=== PATIENT | female | born 1980 | race Caucasian/White ===

== ENCOUNTER 2018-02-14 15:48 | Inpatient (IN) | payer MEDICAID ==
[2018-02-14] MEDS ORDERED: Sodium Chloride 0.9% 1,000 ML IV ONE ×2 (16:02→19:31)
[2018-02-14 16:26] LABS: % BASOPHILS 0.8 % (0.0-2.0); % EOSINOPHILS 0.2 % (0.0-5.0); % MONOCYTES 7.4 % (2.0-10.0); % NEUTROPHILS 73.6 % (40.0-80.0); BASOPHILE ABSOLUTE 0.1 Th/cumm (0-0.2); HEMATOCRIT 38.6 % (41.0-60); HEMOGLOBIN 12.9 gm/dL (12-16); LYMPHOCYTE ABSOLUTE 2.4 Th/cmm (1.5-3.0); MEAN CELL VOLUME 75.3 fl (81-100); MEAN CORPUSCULAR HGB CONC 33.3 pg (28.0-36.0); MEAN PLATELET VOLUME 6.8 fl; PLATELET COUNT 452 Th/cmm (150-400); RED BLOOD COUNT 5.13 Mil/cmm (3.80-5.10); RED CELL DISTRIBUTION WIDTH 15.2 % (11.5-20.0); WHITE BLOOD COUNT 13.5 Th/cmm (4.8-10.8)
[2018-02-14 16:41] LABS: INR 1.06 (0.5-1.4)
[2018-02-14 16:45] LABS: ALB/GLOB RATIO 1.4 (1.0-1.8); ALBUMIN 4.6 gm/dL (3.7-5.3); ALKALINE PHOSPHATASE 102 U/L (34-104); ANION GAP 18.4 (7.0-16.0); BILIRUBIN,TOTAL 0.7 mg/dL (0.3-1.0); BUN - UREA NITROGEN 21 mg/dL (7-25); CALCIUM SERUM 9.5 mg/dL (8.6-10.3); CARBON DIOXIDE 19.2 mEq/L (21.0-31.0); CHLORIDE 107 mEq/L (98-107); CHOLESTEROL 204 mg/dL (<200); CREATININE - SERUM 0.7 mg/dL (0.6-1.2); CREATININE KINASE 3581 U/L (30-223); GFR AFRICAN-AMERICAN > 60.0 ml/min (>90); GFR NON AFRICAN-AMERICAN > 60.0 ml/min; GLUCOSE 184 mg/dL (70-105); HDL -HIGH DENSITY LIPOPROTEIN 30 mg/dL (23-92); POTASSIUM SERUM 3.6 mEq/L (3.5-5.1); SGOT 114 U/L (13-39); SGPT/ALT 61 U/L (7-52); SODIUM SERUM 141 mEq/L (136-145); TRIGLYCERIDES 139 mg/dL (<150)
[2018-02-14 16:46] LABS: AMYLASE SERUM 23 U/L (29-103); LIPASE 7 U/L (11-82)
--- NOTE | 2018-02-14 17:25 | ED Physician Chart ---
ED Chief Complaint/HPI - Patient Information Date Seen:: 02/14/18 Time Seen:: 16:15 Chief Complaint:: Weakness History of Present Illness:: onset x one day of generalized weakness, dizziness, and vertigo; no report of trauma, LOC, ALOC, AMS, H/As, S/T, neck pain, cough, C/P, SOB, Abd. Pain, A/N/V/ D/C, fever, chills, or urinary s/s Allergies:: Allergies Allergy/AdvReac Type Severity Reaction Status Date / Time No Known Allergies Allergy Verified 02/14/18 16:11 Vitals:: Vital Signs - 8 hr 02/14/18 02/14/18 02/14/18 16:11 16:29 16:36 Temp 99.7 F 99.4 F 99.4 F HR 119 111 111 RR 18 24 107 BP 128/74 121/70 127/62 O2 Sat % 96 100 99 Historian:: Patient, EMS Review:: Nurse's Note Reviewed, Old Chart Reviewed, EMS run form Reviewed <Arsen Hogan - Last Filed: 02/14/18 18:29> - Patient Information Allergies:: Allergies Allergy/AdvReac Type Severity Reaction Status Date / Time No Known Allergies Allergy Verified 02/14/18 16:11 Vitals:: Vital Signs - 8 hr 02/14/18 02/14/18 02/14/18 16:11 16:29 16:36 Temp 99.7 F 99.4 F 99.4 F HR 119 111 111 RR 18 24 107 BP 128/74 121/70 127/62 O2 Sat % 96 100 99 02/14/18 02/14/18 18:02 19:29 Temp 98.2 F 99.8 F HR 114 123 RR 20 25 BP 109/52 129/79 O2 Sat % 99 98 <Richard Navarro - Last Filed: 02/14/18 19:42> ED Review of Systems - Review of Systems General/Constitutional: No fever, No chills, No weight loss, Weakness, No diaphoresis, No edema, No loss of appetite Skin: No skin lesions, No rash, No bruising Head: No headache, No light-headedness Eyes: No loss of vision, No pain, No diplopia ENT: No earache, No nasal drainage, No sore throat, No tinnitus Neck: No neck pain, No swelling, No thyromegaly, No stiffness, No mass noted Cardio Vascular: No chest pain, No palpitations, No PND, No orthopnea, No edema Pulmonary: No SOB, No cough, No sputum, No wheezing GI: No nausea, No vomiting, No diarrhea, No pain, No melena, No hematochezia, No constipation, No hematemesis G/U: No dysuria, No frequency, No hematuria, No nacturia Car Trimmer: No vaginal discharge, No abnormal vaginal bleed, No contraction Musculoskeletal: No bone or joint pain, No back pain, No muscle pain Endocrine: No polyuria, No polydipsia Psychiatric: Prior psych history, No depression, Anxiety, No suicidal ideation, No homicidal ideation, No auditory hallucination, No visual hallucination Hematopoietic: No bruising, No lymphadenopathy Allergic/Immuno: No urticaria, No angioedema Neurological: No syncope, No focal symptoms, Weakness, No paresthesia, No headache, No seizure, Dizziness, No confusion, Vertigo <Arsen Hogan - Last Filed: 02/14/18 18:29> ED Past Medical History - Past Medical History Obtainable: Yes Past Medical History: No significant medical hx Family History: None Social History: Non Smoker, No Alcohol, No Drug Use, Single Surgical History: None Psychiatricy History: Other (Anxiety) Medication: Reviewed <Arsen Hogan - Last Filed: 02/14/18 18:29> Family Medical History - Family Member Mother History Unknown: Yes <Arsen Hogan - Last Filed: 02/14/18 18:29> ED Physical Exam - Physical Examination General/Constitutional: Awake, Well-developed, well-nourished, Alert, No distress, GCS 15, Non-toxic appearing, Ambulatory Head: Atraumatic Eyes: Lids, conjuctiva normal, PERRL, EOMI Skin: Nl inspection, No rash, No skin lesions, No ecchymosis, Well hydrated, No lymphadenopathy ENMT: External ears, nose nl, TM canals nl, Nasal exam nl, Lips, teeth, gums nl , Oropharynx nl, Tonsils nl Neck: Nontender, Full ROM w/o pain, No JVD, No nuchal rigidity, No bruit, No mass, No stridor Other Neck comments:: supple; no meningeal signs; no cervical tenderness; no bruits Respiratory: Nl effort/Exclusion, Clear to Auscultation, No Wheeze/Rhonchi/Rales Cardio Vascular: RRR, No murmur, gallop, rubs, NL S1 S2, Carotid/Femoral/Distal pulses equal bilaterally GI: No tenderness/rebounding/guarding, No organomegaly, No hernia, Normal BS's, Nondistended, No mass/bruits, No McBurney tenderness Other GI comments:: no pulsatile masses : No CVA tenderness Extremities: No tenderness or effusion, Full ROM, normal strength in all extremities, No edema, Normal digits & nails Neuro/Psych: Alert/oriented, DTR's symmetric, Normal sensory exam, Normal motor strength, Judgement/insight normal, Mood normal, Normal gait, No focal deficits Other Neuro/Psych comments:: no focal signs Misc: Normal back, No paraspinal tenderness <Arsen Hogan - Last Filed: 02/14/18 18:29> ED Labs/Radiology/EKG Results - Lab Results Results: Laboratory Tests 02/14/18 02/14/18 02/14/18 16:19 16:19 16:19 WBC 13.5 H RBC 5.13 H Hgb 12.9 Hct 38.6 L MCV 75.3 L MCH 25.0 L MCHC Differential 33.3 RDW 15.2 Plt Count 452 H MPV 6.8 Neutrophils % 73.6 Lymphocytes % 18.0 L Monocytes % 7.4 Eosinophils % 0.2 Basophils % 0.8 PT 11.0 INR 1.06 Sodium 141 Potassium 3.6 Chloride 107 Carbon Dioxide 19.2 L Anion Gap 18.4 H BUN 21 Creatinine 0.7 Est GFR ( Amer) > 60.0 Est GFR (Non-Af Amer) > 60.0 BUN/Creatinine Ratio 30.0 Glucose 184 H Calcium 9.5 Total Bilirubin 0.7 AST 114 H ALT 61 H Alkaline Phosphatase 102 Creatine Kinase 3581 H CK-MB (CK-2) 32.4 H Troponin I B-Natriuretic Peptide Total Protein 8.0 Albumin 4.6 Globulin 3.4 Albumin/Globulin Ratio 1.4 Triglycerides 139 Cholesterol 204 H LDL Cholesterol Direct 152 HDL Cholesterol 30 Amylase Lipase 02/14/18 02/14/18 02/14/18 16:19 16:19 16:19 WBC RBC Hgb Hct MCV MCH MCHC Differential RDW Plt Count MPV Neutrophils % Lymphocytes % Monocytes % Eosinophils % Basophils % PT INR Sodium Potassium Chloride Carbon Dioxide Anion Gap BUN Creatinine Est GFR ( Amer) Est GFR (Non-Af Amer) BUN/Creatinine Ratio Glucose Calcium Total Bilirubin AST ALT Alkaline Phosphatase Creatine Kinase CK-MB (CK-2) Troponin I 0.01 B-Natriuretic Peptide 7.6 Total Protein Albumin Globulin Albumin/Globulin Ratio Triglycerides Cholesterol LDL Cholesterol Direct HDL Cholesterol Amylase 23 L Lipase 7 L Comments:: Reviewed - EKG Interpretations EKG Time:: 16:11 Rate & Rhythm: 114; ST Comments:: non-specific st-t changes <Arsen Hogan - Last Filed: 02/14/18 18:29> - Lab Results Results: Laboratory Tests 02/14/18 02/14/18 02/14/18 16:19 16:19 16:19 WBC 13.5 H RBC 5.13 H Hgb 12.9 Hct 38.6 L MCV 75.3 L MCH 25.0 L MCHC Differential 33.3 RDW 15.2 Plt Count 452 H MPV 6.8 Neutrophils % 73.6 Lymphocytes % 18.0 L Monocytes % 7.4 Eosinophils % 0.2 Basophils % 0.8 PT 11.0 INR 1.06 Sodium 141 Potassium 3.6 Chloride 107 Carbon Dioxide 19.2 L Anion Gap 18.4 H BUN 21 Creatinine 0.7 Est GFR ( Amer) > 60.0 Est GFR (Non-Af Amer) > 60.0 BUN/Creatinine Ratio 30.0 Glucose 184 H Calcium 9.5 Total Bilirubin 0.7 AST 114 H ALT 61 H Alkaline Phosphatase 102 Creatine Kinase 3581 H CK-MB (CK-2) 32.4 H Troponin I B-Natriuretic Peptide Total Protein 8.0 Albumin 4.6 Globulin 3.4 Albumin/Globulin Ratio 1.4 Triglycerides 139 Cholesterol 204 H LDL Cholesterol Direct 152 HDL Cholesterol 30 Amylase Lipase Serum , Qual Urine Source Urine Color Urine Clarity Urine pH Ur Specific [place] Urine Protein Urine Glucose (UA) Urine Ketones Urine Blood Urine Nitrate Urine Bilirubin Urine Ictotest Urine Urobilinogen Ur Leukocyte Esterase Urine RBC Urine WBC Ur Epithelial Cells Urine Bacteria Urine Test Urine Opiates Screen Urine Methadone Screen Ur Barbiturates Screen Ur Tricyclics Screen Ur Phencyclidine Scrn Amphetamines Screen U Methamphetamines Scrn U Benzodiazepines Scrn U Cocaine Metab Screen U Cannabinoids Screen 02/14/18 02/14/18 02/14/18 16:19 16:19 16:19 WBC RBC Hgb Hct MCV MCH MCHC Differential RDW Plt Count MPV Neutrophils % Lymphocytes % Monocytes % Eosinophils % Basophils % PT INR Sodium Potassium Chloride Carbon Dioxide Anion Gap BUN Creatinine Est GFR ( Amer) Est GFR (Non-Af Amer) BUN/Creatinine Ratio Glucose Calcium Total Bilirubin AST ALT Alkaline Phosphatase Creatine Kinase CK-MB (CK-2) Troponin I 0.01 B-Natriuretic Peptide 7.6 Total Protein Albumin Globulin Albumin/Globulin Ratio Triglycerides Cholesterol LDL Cholesterol Direct HDL Cholesterol Amylase 23 L Lipase 7 L Serum , Qual Urine Source Urine Color Urine Clarity Urine pH Ur Specific [place] Urine Protein Urine Glucose (UA) Urine Ketones Urine Blood Urine Nitrate Urine Bilirubin Urine Ictotest Urine Urobilinogen Ur Leukocyte Esterase Urine RBC Urine WBC Ur Epithelial Cells Urine Bacteria Urine Test Urine Opiates Screen Urine Methadone Screen Ur Barbiturates Screen Ur Tricyclics Screen Ur Phencyclidine Scrn Amphetamines Screen U Methamphetamines Scrn U Benzodiazepines Scrn U Cocaine Metab Screen U Cannabinoids Screen 02/14/1818 18 16:19 17:00 17:00 WBC RBC Hgb Hct MCV MCH MCHC Differential RDW Plt Count MPV Neutrophils % Lymphocytes % Monocytes % Eosinophils % Basophils % PT INR Sodium Potassium Chloride Carbon Dioxide Anion Gap BUN Creatinine Est GFR ( Amer) Est GFR (Non-Af Amer) BUN/Creatinine Ratio Glucose Calcium Total Bilirubin AST ALT Alkaline Phosphatase Creatine Kinase CK-MB (CK-2) Troponin I B-Natriuretic Peptide Total Protein Albumin Globulin Albumin/Globulin Ratio Triglycerides Cholesterol LDL Cholesterol Direct HDL Cholesterol Amylase Lipase Serum , Qual NEGATIVE Urine Source CLEAN C Urine Color YELLOW Urine Clarity HAZY Urine pH 6.0 Ur Specific [place] >= 1.030 Urine Protein 100 H Urine Glucose (UA) NEGATIVE Urine Ketones >=80 H Urine Blood SMALL H Urine Nitrate NEGATIVE Urine Bilirubin MODERATE H Urine Ictotest Not Reportable Urine Urobilinogen 2.0 Ur Leukocyte Esterase SMALL H Urine RBC 2-5 Urine WBC 6-10 H Ur Epithelial Cells MODERATE Urine Bacteria 1+ H Urine Test NEGATIVE Urine Opiates Screen Urine Methadone Screen Ur Barbiturates Screen Ur Tricyclics Screen Ur Phencyclidine Scrn Amphetamines Screen U Methamphetamines Scrn U Benzodiazepines Scrn U Cocaine Metab Screen U Cannabinoids Screen 02/14/18 17:00 WBC RBC Hgb Hct MCV MCH MCHC Differential RDW Plt Count MPV Neutrophils % Lymphocytes % Monocytes % Eosinophils % Basophils % PT INR Sodium Potassium Chloride Carbon Dioxide Anion Gap BUN Creatinine Est GFR ( Amer) Est GFR (Non-Af Amer) BUN/Creatinine Ratio Glucose Calcium Total Bilirubin AST ALT Alkaline Phosphatase Creatine Kinase CK-MB (CK-2) Troponin I B-Natriuretic Peptide Total Protein Albumin Globulin Albumin/Globulin Ratio Triglycerides Cholesterol LDL Cholesterol Direct HDL Cholesterol Amylase Lipase Serum , Qual Urine Source Urine Color Urine Clarity Urine pH Ur Specific [place] Urine Protein Urine Glucose (UA) Urine Ketones Urine Blood Urine Nitrate Urine Bilirubin Urine Ictotest Urine Urobilinogen Ur Leukocyte Esterase Urine RBC Urine WBC Ur Epithelial Cells Urine Bacteria Urine Test Urine Opiates Screen NEGATIVE Urine Methadone Screen NEGATIVE Ur Barbiturates Screen NEGATIVE Ur Tricyclics Screen NEGATIVE Ur Phencyclidine Scrn NEGATIVE Amphetamines Screen NEGATIVE U Methamphetamines Scrn NEGATIVE U Benzodiazepines Scrn NEGATIVE U Cocaine Metab Screen NEGATIVE U Cannabinoids Screen NEGATIVE <Richard Navarro - Last Filed: 02/14/18 19:42> ED Assessment - Assessment General Assessment: generalized weakness dehydration rhabdomyolysis <Richard Navarro - Last Filed: 02/14/18 19:42> ED Septic Shock - . Is Septic Shock (SBP<90, OR Lactate>4 mmol\L) present?: No - <6hrs of presentation: Vital Signs: Vital Signs - 8 hr 02/14/18 02/14/18 02/14/18 16:11 16:29 16:36 Temp 99.7 F 99.4 F 99.4 F HR 119 111 111 RR 18 24 107 BP 128/74 121/70 127/62 O2 Sat % 96 100 99 <Arsen Hogan - Last Filed: 02/14/18 18:29> - . Is Septic Shock (SBP<90, OR Lactate>4 mmol\L) present?: No - <6hrs of presentation: Vital Signs: Vital Signs - 8 hr 02/14/18 02/14/18 02/14/18 16:11 16:29 16:36 Temp 99.7 F 99.4 F 99.4 F HR 119 111 111 RR 18 24 107 BP 128/74 121/70 127/62 O2 Sat % 96 100 99 02/14/18 02/14/18 18:02 19:29 Temp 98.2 F 99.8 F HR 114 123 RR 20 25 BP 109/52 129/79 O2 Sat % 99 98 <Richard Navarro - Last Filed: 02/14/18 19:42> ED Reassessment (Disposition) - Reassessment Reassessment Condition:: Improved - Diagnosis Diagnosis:: Dx: Weakness; UTI; Sepsis; Leukocytosis <Arsen Hogan - Last Filed: 02/14/18 18:29> - Reassessment Reassessment Condition:: Improved - Diagnosis Diagnosis:: uti dehydration hyperglycemia rhabdo elevated lfts agitation s/p abs fluids bicarb - Patient Disposition Discharge/Transfer:: Acute Care w/in this hosp <Richard Navarro - Last Filed: 02/14/18 19:42>
[2018-02-14 17:30] LABS: URINE SOURCE CLEAN C
[2018-02-14 17:34] LABS: URINE CLARITY HAZY (CLEAR); URINE COLOR YELLOW; URINE MICROSCOPIC INDICATED? YES
[2018-02-14 17:36] LABS: URINE BILIRUBIN MODERATE (NEGATIVE); URINE BLOOD SMALL (NEGATIVE); URINE GLUCOSE (UA) NEGATIVE (NEGATIVE); URINE KETONE >=80 mg/dL (NEGATIVE); URINE PROTEIN 100 mg/dL (NEGATIVE)
[2018-02-14 17:37] LABS: URINE LEUKOCYTE ESTERASE SMALL (NEGATIVE); URINE NITRATE NEGATIVE (NEGATIVE)
[2018-02-14 17:39] LABS: URINE BACTERIA 1+ /hpf (NONE SEEN); URINE EPITHELIAL CELLS MODERATE /lpf (FEW)
[2018-02-14 17:57] LABS: AMPHETAMINE URINE NEGATIVE (NEGATIVE); BARBITURATES URINE NEGATIVE (NEGATIVE); BENZODIAZEPINES QUAL URINE NEGATIVE (NEGATIVE); CANNABINOID THC NEGATIVE (NEGATIVE); COCAINE METABOLITE QUAL URINE NEGATIVE (NEGATIVE); METHADONE URINE NEGATIVE (NEGATIVE); METHAMPHETAMINES QUAL URINE NEGATIVE (NEGATIVE); OPIATES (MORPHINE) QUAL. URINE NEGATIVE (NEGATIVE); PHENCYCLIDINE (PCP) URINE NEGATIVE (NEGATIVE); TRICYCLICS (TCA) QUAL. URINE NEGATIVE (NEGATIVE)
[2018-02-14] MEDS ORDERED: cefTRIAXone 1 GM in Sodium Chloride 0.9% 50 ML IV ONE (17:57)
[2018-02-14] MEDS ORDERED: Sodium Bicarbonate 8.4% 50mEq PFS IVP STA (19:36)
[2018-02-14] MEDS ORDERED: Piperacillin Sodium/Tazobact 3.375 gm Vial IV ONE (19:47)
[2018-02-14] MEDS ORDERED: Sodium Bicarbonate 8.4% 50mEq PFS IVP ONE (19:47)
[2018-02-14 19:56] LABS: ACETAMINOPHEN < 10.0 ug/mL (10.0-30.0); CHOLESTEROL 186 mg/dL (<200); HDL -HIGH DENSITY LIPOPROTEIN 28 mg/dL (23-92); SALICYLATES (ASPIRIN) < 25.0 mg/L (30.0-100.0); TRIGLYCERIDES 134 mg/dL (<150)
[2018-02-14 21:24] LABS: A1C % 7.7 % (4.0-6.0)
[2018-02-15 01:02] VITALS: BP 110/63
[2018-02-15] MEDS: D5-0.45NS 1,000 ML IV SCH ×2 (01:34→10:26)
[2018-02-15 06:07] LABS: % BASOPHILS 0.5 % (0.0-2.0); % EOSINOPHILS 1.6 % (0.0-5.0); % LYMPHOCYTES 25.2 % (20.0-50.0); % MONOCYTES 8.8 % (2.0-10.0); % NEUTROPHILS 63.9 % (40.0-80.0); BASOPHILE ABSOLUTE 0.1 Th/cumm (0-0.2); EOSINOPHILE ABSOLUTE 0.2 Th/cmm (0.1-0.4); HEMOGLOBIN 11.6 gm/dL (12-16); LYMPHOCYTE ABSOLUTE 3.2 Th/cmm (1.5-3.0); MEAN CELL VOLUME 75.6 fl (81-100); MEAN CORPUSCULAR HEMOGLOBIN 25.1 pg (27.0-31.0); MEAN CORPUSCULAR HGB CONC 33.2 pg (28.0-36.0); MEAN PLATELET VOLUME 7.2 fl; MONOCYTE ABSOLUTE 1.1 Th/cmm (0.3-1.0); NEUTROPHILE ABSOLUTE 7.9 Th/cmm (1.8-8.0); PLATELET COUNT 362 Th/cmm (150-400); RED BLOOD COUNT 4.63 Mil/cmm (3.80-5.10); RED CELL DISTRIBUTION WIDTH 15.7 % (11.5-20.0); WHITE BLOOD COUNT 12.5 Th/cmm (4.8-10.8)
[2018-02-15 06:28] LABS: ALB/GLOB RATIO 1.3 (1.0-1.8); ALBUMIN 3.7 gm/dL (3.7-5.3); ALKALINE PHOSPHATASE 79 U/L (34-104); ANION GAP 11.9 (7.0-16.0); BILIRUBIN,TOTAL 0.5 mg/dL (0.3-1.0); BUN - UREA NITROGEN 12 mg/dL (7-25); CALCIUM SERUM 8.4 mg/dL (8.6-10.3); CARBON DIOXIDE 23.4 mEq/L (21.0-31.0); CHLORIDE 109 mEq/L (98-107); CREATININE - SERUM 0.6 mg/dL (0.6-1.2); GFR AFRICAN-AMERICAN > 60.0 ml/min (>90); GFR NON AFRICAN-AMERICAN > 60.0 ml/min; GLUCOSE 133 mg/dL (70-105); POTASSIUM SERUM 3.3 mEq/L (3.5-5.1); SGOT 129 U/L (13-39); SGPT/ALT 57 U/L (7-52); SODIUM SERUM 141 mEq/L (136-145); TOTAL PROTEIN,SERUM 6.6 gm/dL (6.0-8.3)
[2018-02-15 06:54] LABS: CREATININE KINASE 5204 U/L (30-223)
--- NOTE | 2018-02-15 08:20 | Diagnostic Imaging Report ---
Head CT without intravenous contrast Indication: Pain, altered mental status, sepsis Comparison: None Technique: Axial images were obtained from the vertex to the skull base without IV contrast. Coronal reconstructions were made. Total DLP: 733, CTDI40 FINDINGS: Images of the brain obtained without contrast demonstrate no acute hemorrhage. No mass lesions identified. The ventricles and basal cisterns are patent. The meneses-white matter differentiation is preserved. There is no mass effect or midline shift. Faint right basal ganglia calcification is noted. No skull fractures identified. No soft tissue swelling. The paranasal sinuses are clear. IMPRESSION: No acute intracranial abnormality.
--- NOTE | 2018-02-15 08:26 | Diagnostic Imaging Report ---
Portable chest x-ray Time: 1910 History: Sepsis Allowing for portable technique the heart size is normal. No focal pulmonary parenchymal processes. No hilar or mediastinal abnormalities. Impression: No acute abnormalities.
[2018-02-15] MEDS ORDERED: Potassium Chloride 20 mEq ER Tab PO ONE (09:34)
--- NOTE | 2018-02-15 11:02 | History & Physical ---
ADMIT DATE: 02/15/2018 PATIENT'S IDENTIFICATION: A 37-year-old female. CHIEF COMPLAINT: "I walked from my home and I found out I am in [place]. HISTORY OF PRESENT ILLNESS: A 37-year-old female with questionable underlying psychotic illness versus mild developmental delay, resides with her family in [facility], states that yesterday she started to walk and she realized that she walked all the way to [place] and then she felt very fatigued and tired. According to the chart, the patient was brought into the Emergency Room by Police Department because the patient was having generalized weakness and feeling dizzy. When the patient was worked up in the ER, the patient was noted to have rhabdomyolysis. The patient's urine drug screen was reported negative. The patient is now being admitted. PAST MEDICAL HISTORY: As per patient's account none. MEDICATIONS AT HOME: None. ALLERGIES: None. SOCIAL HISTORY: Lives with her parents. 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 She does not smoke, does not drink, does not take any street drug. FAMILY MEDICAL HISTORY: Remarkable for diabetes. REVIEW OF SYSTEMS: The patient denies any headache, blurred vision, double vision, dysphagia, odynophagia, runny nose, stuffy nose, fever, chills, cough, chest pain, shortness of breath, palpitation, dizziness, nausea, vomiting, diarrhea, dysuria, hematuria, hematochezia, melena. No seizure or syncopal episode. No history of vaginal bleeding, vaginal discharge. PHYSICAL EXAMINATION: GENERAL: Alert, awake, oriented, lying in the bed without any acute distress. VITAL SIGNS: Temperature 97.9, pulse is 98, respiratory rate 18, blood pressure 130/85. HEENT: Normocephalic and atraumatic. Extraocular muscles intact. Tongue was pink and coated. Poor dentition noted. No oral lesions, no exudate, no sinus tenderness. External auditory canal and tympanic membranes are well visualized. NECK: Supple, no JVD, no hepatojugular reflex. No lymphadenopathy, thyromegaly, or carotid bruit. HEART: Both heart sounds are regular. No S3, no S4, no murmur. CHEST: Lungs equal in expansion, no expiratory wheezing. ABDOMEN: Soft. No guarding, no rigidity. Liver and spleen are not palpable. No palpable mass. EXTREMITIES: No edema, no cyanosis or clubbing. Peripheral pulses are +2. No calf tenderness noted. NEUROLOGIC: Alert, awake, follows command. No gross neuro deficits noted. AVAILABLE DIAGNOSTIC DATA: White count 13.5, hemoglobin 12.9, platelet count of 452. PT, PTT are normal. BUN and creatinine is 21 and 0.7, glucose of 184. Glycohemoglobin A1c was checked, which is 7.7. AST, ALT was 114, 116. CPK of 3581 with MB of 32.4. Liver functions are normal. Amylase and lipase are negative. TSH is normal. Urinalysis remarkable for protein was 100+, moderate bilirubin, small blood and ketones were noted. Urine drug screen is negative. CLINICAL IMPRESSIONS: 1. Rhabdomyolysis. 2. Diabetes mellitus. 3. Obesity. 4. Questionable underlying psychotic illness with mild developmental delay. 5. Needs to find family and put her back with the family. PLAN: 1. Admit this patient to telemetry unit. 2. IV fluid. 3. Match I's and O's. 4. Monitor labs. 5. Sliding scale insulin. 6. Social service to see the patient. 7. Possible discharge with the family once labs are acceptable. 8. Care plan reviewed and discussed with RN. JOB# [id number]
[2018-02-16 11:15] LABS: HEMOGLOBIN 13.5 gm/dL (12-16); MEAN CELL VOLUME 75.9 fl (81-100); MEAN CORPUSCULAR HEMOGLOBIN 24.4 pg (27.0-31.0); MEAN CORPUSCULAR HGB CONC 32.2 pg (28.0-36.0); MEAN PLATELET VOLUME 7.9 fl; PLATELET COUNT 447 Th/cmm (150-400); RED BLOOD COUNT 5.54 Mil/cmm (3.80-5.10); RED CELL DISTRIBUTION WIDTH 15.2 % (11.5-20.0); WHITE BLOOD COUNT 13.2 Th/cmm (4.8-10.8)
[2018-02-16 11:52] LABS: BAND NEUTROPHILE 2 % (0-10); BASOPHIL 0 % (0-3); EOSINOPHIL 2 % (0-5); LYMPHOCYTE 20 % (20-50); MONOCYTE 2 % (2-10); NEUTROPHILS 74 % (40-80)
--- NOTE | 2018-02-16 23:30 | Progress Notes ---
DATE: 02/16/2018 SUBJECTIVE: The patient seen and examined. The patient is currently on hold. Hold is expiring today. The patient refused to have IV and refused to have blood draw. The patient currently denies any chest pain, shortness of breath, palpitation, or dizziness. PHYSICAL EXAMINATION: VITAL SIGNS: See nurse's note. HEENT: Poor dentition. NECK: Supple, no JVD. HEART: Regular. LUNGS: Clear. ABDOMEN: Soft. EXTREMITIES: No edema. CLINICAL ASSESSMENT: 1. Rhabdomyolysis. 2. Psychotic disorder. 3. Questionable developmental delay. 4. Diabetes mellitus. PLAN: Suggested at this time, the patient to have a blood test prior to discharging this patient to psych facility or home. Based on the psychiatrist recommendation, the patient has been informed to get the blood test and after that, we will decide on discharge planning. The patient has been discussed with RN as well as case management. Meanwhile, continue current treatment plan. JOB# [id number]
[2018-02-17 10:57] LABS: ALB/GLOB RATIO 1.2 (1.0-1.8); ALBUMIN 4.5 gm/dL (3.7-5.3); ALKALINE PHOSPHATASE 106 U/L (34-104); ANION GAP 14.9 (7.0-16.0); BILIRUBIN,TOTAL 0.5 mg/dL (0.3-1.0); BUN - UREA NITROGEN 9 mg/dL (7-25); CARBON DIOXIDE 24.2 mEq/L (21.0-31.0); CHLORIDE 99 mEq/L (98-107); CREATININE - SERUM 0.6 mg/dL (0.6-1.2); CREATININE KINASE 1779 U/L (30-223); GFR AFRICAN-AMERICAN > 60.0 ml/min (>90); GFR NON AFRICAN-AMERICAN > 60.0 ml/min; GLUCOSE 168 mg/dL (70-105); MAGNESIUM 2.1 mg/dL (1.9-2.7); POTASSIUM SERUM 3.1 mEq/L (3.5-5.1); SGOT 124 U/L (13-39); SGPT/ALT 102 U/L (7-52); SODIUM SERUM 135 mEq/L (136-145); TOTAL PROTEIN,SERUM 8.2 gm/dL (6.0-8.3)
[2018-02-17] MEDS ORDERED: Potassium Chloride 20 mEq ER Tab PO ONE (11:21)
--- NOTE | 2018-02-17 20:21 | Progress Notes ---
DATE: 02/17/2018 IDENTIFICATION: A 37-year-old female. SUBJECTIVE: The patient seen and examined. The patient refused all the blood test at this time. The patient has not been seen by Psychiatrist. The patient is currently on hold. PHYSICAL EXAMINATION: VITAL SIGNS: Temperature 97.7, pulse 96, respiratory rate 18, blood pressure 140/80. HEENT: No facial asymmetry. NECK: Supple, no JVD. HEART: Regular. CHEST: Lung equal in expansion, no expiratory wheezing. ABDOMEN: Soft. EXTREMITIES: No edema. NEUROLOGIC: Nonfocal. IMPRESSION: 1. Rhabdomyolysis 2. Psychotic disorder. 3. Obesity. 4. Diabetes mellitus. PLAN: The patient is refusing every single thing at this time weaning her psych input in order to treat this patient and we will go from there. The patient is not safe to be discharged at this time. The patient's nurse informed. JOB# [id number]
--- NOTE | 2018-02-18 11:30 | Consultation ---
DATE OF CONSULTATION: 02/18/2018 HISTORY OF PRESENT ILLNESS: A 37-year-old female essentially refusing interview currently in the hospital, weak, dizzy, vertigo. The patient multiple times tells me to go away, again tells me to go away, believing I am a classmate and states that she is here because she was walking around and became dehydrated. She knows the year is 2017. She knows the month is January. She is not quite sure about the day of the week, believing it is Monday or Monday. Staff noting that she has been pretty agitated, verbally aggressive requiring a 1:1 refusing fluids and care. Noted to be confused at times. The patient becoming more agitated, verbally abusive towards staff, demanding to be discharged. Paranoid towards staff. PAST PSYCHIATRIC HISTORY: The patient refusing. SOCIAL HISTORY: The patient refusing to answer. FAMILY HISTORY: Unknown. MENTAL STATUS EXAMINATION: Stated age, wearing a hospital gown. Intense eye contact. Fair orientation. Does not know why she is here. Mood "okay." Affect angry. Thought processes were tangential. Thought content, no SI, no HI, but she is pretty paranoid. Insight and judgment diminished. PROVISIONAL DIAGNOSES: Psychosis, unspecified, concerns for schizophrenia. Under medical please see full H and P. RECOMMENDATIONS AND PLAN: We will initiate dosing of Zyprexa. Treatment plan should include increasing collateral as well to see if there is any history per social worker masters note. The patient was found at a bus stop. The patient will likely benefit from inpatient psychiatric hospitalization. We will initiate a 5150 hold. JOB# [id number]
--- NOTE | 2018-02-18 17:41 | Progress Notes ---
DATE: SUBJECTIVE: The patient seen and examined. The patient has been seen by psychiatrist early this morning. The patient has been started on Zyprexa. The patient has been placed on hold. The patient currently, denies any chest pain, short of breath. OBJECTIVE: ITAL SIGNS: Temperature 97, pulse is 100, respiratory rate 18, and blood pressure 134/72. HEENT: No facial asymmetry. NECK: Supple, no JVD. HEART: Regular. CHEST AND LUNGS: Equal in expansion, no expiratory wheezing. ABDOMEN: Soft. EXTREMITIES: No edema. NEUROLOGIC: Nonfocal. AVAILABLE DIAGNOSTIC DATA: Has been reviewed. CLINICAL IMPRESSION: 1. Rhabdomyolysis, improving. 2. Psychotic disorder. 3. Diabetes mellitus. 4. Dehydration, resolved. PLAN: The patient remained medically stable at this time to be transferred to psychiatric facility. We will put the order for the patient to be transferred to inpatient psych. Further management of her psychiatric illness as per psychiatrist. JOB# [id number]
--- NOTE | 2018-02-19 10:57 | Progress Notes ---
DATE: 02/19/2018 SUBJECTIVE: The patient was seen and examined. No new event. The patient needs to be placed at the psych facility. The patient is yelling, anxious, and confused and throwing objects to the family member. The patient is refusing IV fluid and IV antibiotic. The patient has been seen by psychiatrist and needs to be placed at the acute inpatient psych. PHYSICAL EXAMINATION: VITAL SIGNS: On today's exam. temperature 98.4, pulse 71, respiratory rate 18, blood pressure 137/74. HEENT: No facial asymmetry. NECK: Supple. HEART: Regular. LUNGS: Clear. ABDOMEN: Soft. EXTREMITIES: No edema. CLINICAL IMPRESSION: 1. Psychotic disorder exacerbation, needs inpatient psych care. 2. Rhabdomyolysis, resolved. 3. Diabetes mellitus. PLAN: Transfer this patient to inpatient psych facility. We will talk to habitat conservation planner and make appropriate management. [facility]# [id number]
--- NOTE | 2018-02-20 23:15 | Progress Notes ---
DATE: 02/20/2018 SUBJECTIVE: The patient seen and examined. The patient is lying in the bed. No new event, still patient is here awaiting transfer to her psychiatric facility. OBJECTIVE: VITAL SIGNS: Temperature 98, pulse is 90, respiratory rate 18, blood pressure 132/73. HEENT: No facial asymmetry. NECK: Supple. HEART: Regular. LUNGS: Clear. ABDOMEN: Soft. EXTREMITIES: No edema. NEUROLOGIC: Alert, awake, follows commands. No gross neuro deficit noted. CLINICAL IMPRESSION: 1. Psychotic disorder. 2. Diabetes. 3. Rhabdomyolysis, resolved. 4. Obesity. PLAN: 1. Stable for Psych transfer care. 2. Continue current treatment. 3. Psych medication and management as per psychiatrist. JOB# [id number]
[2018-02-21 09:14] LABS: HEMATOCRIT 42.6 % (41.0-60); MEAN PLATELET VOLUME 7.2 fl; PLATELET COUNT 483 Th/cmm (150-400); RED BLOOD COUNT 5.58 Mil/cmm (3.80-5.10); WHITE BLOOD COUNT 12.2 Th/cmm (4.8-10.8)
[2018-02-21 09:15] LABS: % EOSINOPHILS 1.7 % (0.0-5.0); % NEUTROPHILS 76.1 % (40.0-80.0); MEAN CELL VOLUME 76.3 fl (81-100); MEAN CORPUSCULAR HGB CONC 32.8 pg (28.0-36.0); RED CELL DISTRIBUTION WIDTH 15.7 % (11.5-20.0)
[2018-02-21 09:16] LABS: % BASOPHILS 0.2 % (0.0-2.0); EOSINOPHILE ABSOLUTE 0.2 Th/cmm (0.1-0.4); LYMPHOCYTE ABSOLUTE 2.4 Th/cmm (1.5-3.0); MONOCYTE ABSOLUTE 0.2 Th/cmm (0.3-1.0); NEUTROPHILE ABSOLUTE 9.4 Th/cmm (1.8-8.0)
[2018-02-21 09:29] LABS: ALB/GLOB RATIO 1.2 (1.0-1.8); ALBUMIN 4.3 gm/dL (3.7-5.3); ALKALINE PHOSPHATASE 100 U/L (34-104); ANION GAP 14.4 (7.0-16.0); BILIRUBIN,TOTAL 0.4 mg/dL (0.3-1.0); BUN - UREA NITROGEN 10 mg/dL (7-25); CALCIUM SERUM 10.1 mg/dL (8.6-10.3); CARBON DIOXIDE 24.8 mEq/L (21.0-31.0); CHLORIDE 97 mEq/L (98-107); CREATININE - SERUM 0.6 mg/dL (0.6-1.2); CREATININE KINASE 246 U/L (30-223); GFR AFRICAN-AMERICAN > 60.0 ml/min (>90); GFR NON AFRICAN-AMERICAN > 60.0 ml/min; GLUCOSE 270 mg/dL (70-105); MAGNESIUM 1.9 mg/dL (1.9-2.7); POTASSIUM SERUM 4.2 mEq/L (3.5-5.1); SGOT 67 U/L (13-39); SGPT/ALT 86 U/L (7-52); SODIUM SERUM 132 mEq/L (136-145); TOTAL PROTEIN,SERUM 7.8 gm/dL (6.0-8.3)
--- NOTE | 2018-02-21 23:27 | Progress Notes ---
DATE: 02/21/2018 /DATE OF EVALUATION: 02/21/2018 SUBJECTIVE: The patient seen and examined. The patient has no new event. Awaiting transfer to psychiatric facility. PHYSICAL EXAMINATION: VITAL SIGNS: Temperature 97.9, pulse is 80, respiratory rate 18, blood pressure 130/80. HEENT: No facial asymmetry. NECK: Supple, no JVD. HEART: Regular. CHEST AND LUNGS: Equal in expansion, no expiratory wheezing. ABDOMEN: Soft. EXTREMITIES: No edema. NEUROLOGIC: Nonfocal. LABORATORY DATA: BUN and creatinine is 10 and 0.6, potassium 4.2, glucose of 270. AST, ALT, and alkaline phosphatase are down to 67, 86, and 246. CLINICAL IMPRESSION: 1. Rhabdomyolysis, almost resolved. 2. Psychotic disorder exacerbation. 3. Diabetes mellitus. 4. Stable for transfer to psych facility. PLAN: The patient can go to the inpatient psychiatric unit as per psychiatrist. Continue psych care as ordered. The patient should get benefit with the diabetes medications. We will put the patient on metformin XR 500 mg daily. JOB# [id number]
--- NOTE | 2018-02-21 23:55 | Progress Notes ---
DATE: 02/21/2018 HISTORY OF PRESENT ILLNESS: A 37-year-old female who I saw a few days prior, was noted to be pretty combative, agitated, bizarre appearing. She is significantly calmer, more cooperative, better oriented. She still believes that she can live with family, but this has not been confirmed and for all intents and purposes she is homeless. The patient noted to be sleeping well, eating well. She has been more compliant with medications. I asked her if she is having any side effects. She denies any side effects to the medications. Notes that she has been taking the medications, more amenable also to nursing care. Staff noting she has been significantly calmer. ASSESSMENT: The patient with fair ADLs, appropriately dressed and groomed, wearing a hospital gown. Mood "better." Affect constricted. Thought processes were linear, better orientation, more engaged, less withdrawn. No SI, no HI, no overt psychotic symptoms noted, although there are concerns that there may be an underlying psychosis, the patient denies. Insight and judgment seem better. PLAN: We will increase dosing of Zyprexa today. Continue 14-day hold. [facility]# [id number]
--- NOTE | 2018-03-08 00:54 | Discharge Summary ---
DATE OF DISCHARGE: 02/21/2018 DISPOSITION: Discharge to psychiatric care on 02/21/2018. PRINCIPAL DIAGNOSES: 1. Rhabdomyolysis. 2. Diabetes mellitus. 3. Psychiatric disorder exacerbation. 4. Obesity. BRIEF STATEMENT FOR THE REASON FOR ADMISSION: A 37-year-old female presented to Emergency Room by Police Department after the patient was found on the street and noted to have generalized weakness and feeling dizziness and the patient was referred by Emergency Room. The patient was noted to have rhabdomyolysis and diabetes mellitus. The patient was admitted to the hospital for further treatment. Please refer to my dictated H and P for further information. HOSPITAL COURSE: The patient was admitted to telemetry unit. The patient was given aggressive IV fluid as well as a Glucoscan a.c. and at bedtime with covering the blood sugar, sliding scale of NovoLog insulin. The patient was noted to have a significant psychotic illness. The patient was refusing and the patient was seen by the psychiatrist. The patient was placed on hold, considering the patient was having a significant amount of behavioral disturbances. ____ rhabdomyolysis were resolved. It was decided that the patient can be discharged to inpatient psychiatric care. The patient was transferred to inpatient psychiatric care on 02/21/2018. At the time of discharge, all of her meds were reconciled. JOB# [id number]
== END 2018-02-21 21:15 | DRG 720 ==
LOC: ER 15:48 → TELE 21:30 → MSI 02-15 11:26
PROVIDERS: ADMIT Internal Medicine; ATTEND Internal Medicine
DX: A41.9 Sepsis, unspecified organism (principal); M62.82 Rhabdomyolysis; E11.65 Type 2 diabetes mellitus with hyperglycemia; E66.9 Obesity, unspecified; Z68.28 Body mass index [BMI] 28.0-28.9, adult; F41.9 Anxiety disorder, unspecified; E86.0 Dehydration; N39.0 Urinary tract infection, site not specified; F23 Brief psychotic disorder
CPT/HCPCS: 36415-UA; 70450-TC; 71045-TC; 80053-TC; 80061-TC; 80307; 80320-TC; 80329-TC; 81001-TC; 81025-TC; 82010-TC; 82150-TC; 82550-TC; 82553; 83036-90; 83605; 83690-TC; 83735-TC; 83880-TC; 84443-TC; 84484-TC; 84703-TC; 85007-TC; 85025-TC; 85610-TC; 86592-TC; 93005; 94760; 96375; J0696; J1200; J2060; J2543; J7030; J7051; Z7610